=== PATIENT | female | born 1970 | race Caucasian/White ===

== ENCOUNTER → 2023-11-13 | Emergency (ER) | payer BC ==
[~2023-11-13] MED LIST: KETOROLAC 30 MG/ML INJ ONE; METHOCARBAMOL 1,000 MG/10 ML VIAL ONE; NA CHLORIDE 0.9% 1,000 ML ONE; NA CHLORIDE 0.9% 100 ML ONE; ONDANSETRON 4 MG/2 ML VIAL ONE; dexAMETHasone 10 MG/ML VIAL ONE
[2023-11-13 18:23] LABS: Specific Gravity > 1.030 (1.005-1.030)
[2023-11-13 18:26] LABS: Absolute Basophils 0.2 K/uL (0-0.5); Absolute Lymphocytes (CBC) 2.9 K/uL (0.7-4.9); Basophils % 1.6 % (0-1.3); Hematocrit 40.3 % (36.0-45.0); Lymphocytes % 30.2 % (15.3-44.8); MCV 85.4 fL (80-100); MPV 7.5 fL (7.6-11.3); Platelets 342 thou/uL (152-406); RBC Red Blood Cell Count 4.72 M/uL (3.86-4.86); Specific Gravity > 1.030 (1.005-1.030); Urine Bacteria None Seen /HPF (<20); Urine Bilirubin NEGATIVE (Negative); Urine Blood Negative (Negative); Urine Clarity Turbid (Clear); Urine Color Colorless (Yellow); Urine Glucose 4+ (Over) (Negative); Urine Mucus Slight /HPF (None Seen); Urine Protein NEGATIVE (Negative); Urine RBC <5 /HPF (None Seen); Urine Urobilinogen Normal (Normal); Urine pH 5.5 (5.0-7.0)
[2023-11-13 19:47] LABS: Albumin 3.3 g/dL (3.4-5.0); Anion Gap 10.6 mEq/L (5.0-15.0); Bilirubin Total 0.2 mg/dL (0.2-1.0); Potassium 3.6 mEq/L (3.5-5.1)
[2023-11-13 19:59] LABS: Albumin/Globulin Ratio 0.9 (1.1-1.8)
--- NOTE | 2023-11-13 20:51 | RAD REPORT ---
EXAM DESCRIPTION: CT - Abdomen Pelvis W Contrast - 11/13/2023 8:06 pm CLINICAL HISTORY: right lower abdomen pain COMPARISON: No comparisons TECHNIQUE: Thin cut axial CT imaging of the abdomen and pelvis was performed following intravenous a dministration of iodinated contrast. Multiplanar reformats were generated and reviewed. All CT scans are performed using dose optimization technique as appropriate and may include automated exposure control or mA/KV adjustment according to patient size. FINDINGS: No suspicious findings in the lung bases. The liver shows mild diffuse parenchymal hypoattenuation suggesting steatosis. Small regions of fatty sparing at the gallbladder bed the. Spleen and pancreas show no suspicious findings. Left adrenal 2. 4 x 2.2 cm enhancing nodule. Gallbladder is contracted limiting evaluation. . Symmetric renal function is seen with no hydronephrosis or suspicious renal mass. No dilated bowel loops or bowel wall thickening. Mild distal colonic diverticulosis. No free air, efraín e fluid or fluid collections. Nonspecific mild fat stranding at the mesenteric root. No hernia, mass or bulky lymphadenopathy. The urinary bladder is without significant finding. No suspicious bony findings. 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 IMPRESSION: Nonspecific mild fat stranding at the mesenteric root. The finding can be idiopathic, or seen with a variety of other etiologies including liver disease, inflammatory process ease in the ab domen, or mesenteric panniculitis. Incidentally noted left adrenal 2.3 cm nodule, not well characterized. This can be further evaluated on dedicated adrenal protocol CT or MRI, on an outpatient basis. Incidental findings including diffuse hepatic steatosis and mild distal colonic diverticulosis.
--- NOTE | 2023-11-13 22:37 | ER ---
Nurse's Notes [facility] Name: Laurie Lebron Age: 53 yrs Sex: Female : 1970 Arrival Date: 11/13/2023 Time: 17:13 Bed 15 Private MD: Diagnosis: Lower abdominal pain, unspecified;Dorsalgia, unspecified Presentation: 11/12 17:37 Chief complaint: Patient states: About 4 or 5 days ago i had a dull achy pain in my kd3 right side. I thought i pulled something so i took some ibuprofen and it was fine. But it kept coming back every afternoon. I woke up 2:30 yesterday morning and it was hurting really bad. I woke up at 4:30 this morning and it is even worse than yesterday. It starting in my stomach and wraps to my back. Coronavirus screen: Vaccine status: Patient reports receiving the 2nd dose of the covid vaccine. Ebola Screen: No symptoms or risks identified at this time. Initial Sepsis Screen: Does the patient meet any 2 criteria? No. Patient's initial sepsis screen is negative. Does the patient have a suspected source of infection? No. Patient's initial sepsis screen is negative. Risk Assessment: Do you want to hurt yourself or someone else? Patient reports no desire to harm self or others. Onset of symptoms was November 09, 2023. 17:37 Method Of Arrival: Ambulatory kd3 17:37 Acuity: JAMMIE 3 kd3 Triage Assessment: 17:40 General: Appears uncomfortable, Behavior is calm, cooperative. Pain: Complains of pain kd3 in right lower quadrant and left lower quadrant Pain radiates to right low back. GI: Abdomen is non-distended. Historical: - Allergies: 17:40 PENICILLINS; kd3 17:40 Morphine; kd3 - Immunization history:: Adult Immunizations up to date. - Social history:: Smoking status: Patient reports the use of cigarette tobacco products, smokes one-half pack cigarettes per day. Screenin:21 [facility] ED Fall Risk Assessment (Adult) History of falling in the last 3 months, cp4 including since admission No falls in past 3 months (0 pts) Confusion or Disorientation No (0 pts) Intoxicated or Sedated No (0 pts) Impaired Gait No (0 pts) Mobility Assist Device Used No (0 pt) Altered Elimination No (0 pt) Score/Fall Risk Level 0 - 2 = Low Risk Oriented to surroundings, Maintained a safe environment, Educated pt \T\ family on fall prevention, incl call for assistance when getting out of bed, Assessed \T\ reinforced patient's understanding of fall precautions, Hourly rounding (assess needs \T\ fall precautionary measures) done. Abuse screen: Denies threats or abuse. Nutritional screening: No deficits noted. Tuberculosis screening: No symptoms or risk factors identified. Assessment: 18:21 General: Appears in no apparent distress. Behavior is calm, cooperative, appropriate cp4 for age. Pain: Complains of pain in abdomen. GI: Bowel sounds present X 4 quads. Abd is soft and non tender X 4 quads. 22:07 General: Appears uncomfortable, Behavior is calm, cooperative. Pain: Complains of pain ha1 in back Pain radiates to pelvis Pain currently is 7 out of 10 on a pain scale. Quality of pain is described as throbbing, Aggravated by increased activity. Neuro: Level of Consciousness is awake, alert, obeys commands, Oriented to person, place, time, situation. Cardiovascular: Patient's skin is warm and dry. Respiratory: Airway is patent Respiratory effort is even, unlabored, Respiratory pattern is regular, symmetrical. 22:50 Reassessment: discharge pending medication administration to be completed. ha1 23:13 Reassessment: Patient and/or family updated on plan of care and expected duration. Pain ha1 level reassessed. Patient is alert, oriented x 3, equal unlabored respirations, skin warm/dry/pink. Patient states feeling better. Patient states symptoms have improved. Vital Signs: 17:37 BP 174 / 93; Pulse 97; Resp 16; Temp 98.3(O); Pulse Ox 98% on R/A; Weight 89.81 kg; kd3 Height 5 ft. 4 in. ; Pain 9/10; 18:30 BP 144 / 80; Pulse 90; Resp 18; Pulse Ox 98% ; cp4 19:30 BP 152 / 72; Pulse 95; Resp 18; Pulse Ox 98% ; cp4 20:30 BP 136 / 84; Pulse 91; Resp 18; Pulse Ox 98% ; cp4 22:15 BP 154 / 82; Pulse 82; Resp 16 S; Temp 98.1; Pulse Ox 97% on R/A; ha1 17:37 Body Mass Index 33.99 (89.81 kg, 162.56 cm) kd3 17:37 Pain Scale: Adult kd3 ED Course: 17:16 Patient arrived in ED. im 17:18 Vaughn Perez PA is PHCP. cp 17:18 Wilmer Henry DO is Attending Physician. cp 17:40 Triage completed. kd3 17:40 Arm band placed on left wrist. kd3 17:57 Renetta Andrade is Primary Nurse. cp4 18:13 CBC with Diff Sent. cp4 18:13 CMP Sent. cp4 18:13 Lipase Sent. cp4 18:13 Test, Urine Sent. cp4 18:13 Urinalysis w/ reflexes Sent. cp4 18:21 Bed in low position. Call light in reach. Side rails up X 1. cp4 18:22 Inserted saline lock: 20 gauge in right antecubital area, using aseptic technique. cp4 Blood collected. 20:08 CT Abd/Pelvis - IV Contrast Only In Process Unspecified. EDMS 22:05 Report received from Emilia Andrade RN. ha1 23:13 No provider procedures requiring assistance completed. IV discontinued, intact, ha1 bleeding controlled, No redness/swelling at site. Pressure dressing applied. 23:14 Provided Education on: medication administration . ha1 Administered Medications: 18:20 Drug: NS 0.9% IV 1000 ml IV at 1 bolus Per protocol; 1000 mL bolus Route: IV; Rate: 1 cp4 bolus; Site: right antecubital; 23:12 Follow up: Response: No adverse reaction; IV Status: Completed infusion; IV Intake: ha1 1000ml 18:21 Drug: TORadol - Ketorolac IVP 15 mg IVP once Route: IVP; Site: right antecubital; cp4 18:21 Drug: Ondansetron IVP 4 mg IVP once; over 2 minutes Route: IVP; Site: right antecubital;cp4 21:50 CANCELLED (Physician Discretion): fentanyl (pf)25 mcg IVP once cp 22:25 Drug: Decadron - Dexamethasone IVP 10 mg IVP once Route: IVP; Site: right antecubital; ha1 23:12 Follow up: Response: No adverse reaction ha1 22:27 Drug: Methocarbamol IVPB 1 grams IVPB once over 1 hrs; (mix in NS 100 mL) Route: IVPB; ha1 Infused Over: 1 hrs; Site: right antecubital; 23:12 Follow up: Response: No adverse reaction; IV Status: Completed infusion; IV Intake: ha1 100ml Medication: 18:21 VIS not applicable for this client. cp4 Intake: 23:12 IV: 100ml; Total: 100ml. ha1 23:12 IV: 1000ml; Total: 1100ml. ha1 Outcome: 22:37 Discharge ordered by MD. cp 23:13 Discharged to home ambulatory, ha1 23:13 Condition: stable 23:13 Discharge instructions given to patient, Instructed on discharge instructions, follow up and referral plans. medication usage, Demonstrated understanding of instructions, follow-up care, medications, Prescriptions given X 2, 23:14 Patient left the ED. ha1 Signatures: Dispatcher [employer] EDMS Vaughn Perez PA PA cp Doucette, Kyli, RN RN kd3 Della Perez RN RN ha1 Kristine Monson Christina cp4
--- NOTE | 2023-11-13 22:37 | EDPHYS ---
Physician Documentation [facility] Name: Laurie Lebron Age: 53 yrs Sex: Female : 1970 Arrival Date: 11/13/2023 Time: 17:13 Bed 15 Private MD: ED Physician Wilmer Henry HPI: 11/12 18:00 This 53 yrs old Female presents to ER via Ambulatory with complaints of Abdominal Pain, cp Low Back Pain. 18:00 The patient presents with abdominal pain right lower quadrant, right flank. Onset: The cp symptoms/episode began/occurred 4-5 days ago. The symptoms radiate to right back. Associated signs and symptoms: Pertinent negatives: anorexia, chest pain, constipation, diarrhea, dysuria, fever, vomiting, vaginal bleeding. 18:00 The symptoms are described as achy, constant, dull. Modifying factors: the symptoms are cp aggravated by movement, pressure. Severity of pain: in the emergency department the pain is unchanged despite home interventions. Historical: - Allergies: 17:40 PENICILLINS; kd3 17:40 Morphine; kd3 - Immunization history:: Adult Immunizations up to date. - Social history:: Smoking status: Patient reports the use of cigarette tobacco products, smokes one-half pack cigarettes per day. ROS: 18:05 Constitutional: Negative for body aches, chills, fever, poor PO intake, cp 18:05 Eyes: Negative for injury, pain, redness, and discharge, cp 18:05 ENT: Negative for drainage from ear(s), ear pain, sore throat, difficulty swallowing, difficulty handling secretions, 18:05 Cardiovascular: Negative for chest pain, 18:05 Respiratory: Negative for cough, shortness of breath, wheezing, 18:05 Abdomen/GI: Positive for abdominal pain, of the right lower quadrant and left lower quadrant, Negative for vomiting, diarrhea, constipation, anorexia, black/tarry stool, rectal bleeding, 18:05 Back: Positive for radiated pain, of the right low back, 18:05 : Negative for urinary symptoms, vaginal bleeding, 18:05 Neuro: Negative for altered mental status, headache, numbness, weakness, 18:05 All other systems are negative, Exam: 18:10 Constitutional: The patient appears in no acute distress, alert, awake, non-toxic, well cp developed, well nourished, 18:10 Head/Face: Normocephalic, atraumatic. cp 18:10 Eyes: Periorbital structures: appear normal, Conjunctiva: normal, no exudate, no injection, Sclera: no appreciated abnormality, Lids and lashes: appear normal, bilaterally, 18:10 ENT: External ear(s): are unremarkable, Nose: is normal, Mouth: Lips: moist, Oral mucosa: pink and intact, moist, Posterior pharynx: is normal, 18:10 Chest/axilla: Inspection: normal, 18:10 Cardiovascular: Rate: normal, Rhythm: regular, 18:10 Respiratory: the patient does not display signs of respiratory distress, Respirations: normal, no use of accessory muscles, no retractions, labored breathing, is not present, Breath sounds: are clear throughout, no decreased breath sounds, no stridor, no wheezing, 18:10 Abdomen/GI: Inspection: abdomen appears normal, Bowel sounds: active, all quadrants, Palpation: soft, in all quadrants, moderate abdominal tenderness, in the right lower quadrant and right lower flank, rebound tenderness, is not appreciated, involuntary guarding, is not appreciated, 18:10 Back: CVA tenderness, is absent, 18:10 Skin: cellulitis, is not appreciated, no rash present. Vital Signs: 17:37 BP 174 / 93; Pulse 97; Resp 16; Temp 98.3(O); Pulse Ox 98% on R/A; Weight 89.81 kg; kd3 Height 5 ft. 4 in. ; Pain 9/10; 18:30 BP 144 / 80; Pulse 90; Resp 18; Pulse Ox 98% ; cp4 19:30 BP 152 / 72; Pulse 95; Resp 18; Pulse Ox 98% ; cp4 20:30 BP 136 / 84; Pulse 91; Resp 18; Pulse Ox 98% ; cp4 22:15 BP 154 / 82; Pulse 82; Resp 16 S; Temp 98.1; Pulse Ox 97% on R/A; ha1 17:37 Body Mass Index 33.99 (89.81 kg, 162.56 cm) kd3 17:37 Pain Scale: Adult kd3 MDM: 17:36 Patient medically screened. cp 22:36 Data reviewed: vital signs, nurses notes, lab test result(s), radiologic studies, CT cp scan, and as a result, I will discharge patient. 22:36 Differential diagnosis: appendicitis, non-specific abd pain, Pyelonephritis, cp Ureterolithiasis, urinary tract infection. I considered the following discharge prescriptions or medication management in the emergency department Medications were administered in the Emergency Department. See MAR. Counseling: I had a detailed discussion with the patient and/or guardian regarding the historical points, exam findings, and any diagnostic results supporting the discharge/admit diagnosis, lab results, radiology results, to return to the emergency department if symptoms worsen or persist or if there are any questions or concerns that arise at home. Response to treatment: the patient's symptoms have markedly improved after treatment, and as a result, I will discharge patient. Special discussion: Based on the patient's Hx, exam, and Dx evaluation, there is no indication for emergent surgery or inpatient Tx. It is understood by the patient/guardian that if the Sx's persist or worsen they need to return immediately for re-evaluation. 11/12 17:52 Order name: CBC with Diff; Complete Time: 18:33 cp 11/12 17:52 Order name: CMP; Complete Time: 21:05 cp 11/12 17:52 Order name: Lipase; Complete Time: 21:05 cp 11/12 17:52 Order name: Test, Urine; Complete Time: 18:33 cp 11/12 17:52 Order name: Urinalysis w/ reflexes; Complete Time: 18:33 cp 11/12 21:07 Interpretation: Normal except: [facility] Turbid; Urine SG > 1.030; UGLUC 4+ (Over). cp 11/12 18:34 Order name: CT Abd/Pelvis - IV Contrast Only; Complete Time: 21:05 cp 11/12 21:06 Interpretation: Report reviewed. 11/12 17:52 Order name: IV Saline Lock; Complete Time: 18:08 cp 11/12 17:52 Order name: Labs collected and sent; Complete Time: 18:08 cp Administered Medications: 18:20 Drug: NS 0.9% IV 1000 ml IV at 1 bolus Per protocol; 1000 mL bolus Route: IV; Rate: 1 cp4 bolus; Site: right antecubital; 23:12 Follow up: Response: No adverse reaction; IV Status: Completed infusion; IV Intake: ha1 1000ml 18:21 Drug: TORadol - Ketorolac IVP 15 mg IVP once Route: IVP; Site: right antecubital; cp4 18:21 Drug: Ondansetron IVP 4 mg IVP once; over 2 minutes Route: IVP; Site: right antecubital;cp4 21:50 CANCELLED (Physician Discretion): fentanyl (pf)25 mcg IVP once cp 22:25 Drug: Decadron - Dexamethasone IVP 10 mg IVP once Route: IVP; Site: right antecubital; ha1 23:12 Follow up: Response: No adverse reaction ha1 22:27 Drug: Methocarbamol IVPB 1 grams IVPB once over 1 hrs; (mix in NS 100 mL) Route: IVPB; ha1 Infused Over: 1 hrs; Site: right antecubital; 23:12 Follow up: Response: No adverse reaction; IV Status: Completed infusion; IV Intake: ha1 100ml Disposition Summary: 11/13/23 22:37 Discharge Ordered Notes: Location: Home cp Problem: new cp Symptoms: have improved cp Condition: Stable cp Diagnosis - Lower abdominal pain, unspecified cp - Dorsalgia, unspecified cp Followup: cp - With: Private Physician - When: 2 - 3 days - Reason: Recheck today's complaints Discharge Instructions: - Discharge Summary Sheet cp - Abdominal Pain, Adult cp - Acute Back Pain, Adult cp Forms: - Medication Reconciliation Form cp - Thank You Letter cp - Antibiotic Education cp - Prescription Opioid Use cp - Patient Portal Instructions cp - Leadership Thank You Letter cp Prescriptions: - Cyclobenzaprine 10 mg Oral Tablet - take 1 tablet ORAL route every 8 hours As needed; 30 tablet; Refills: 0, cp Product Selection Permitted - Diclofenac Sodium 75 mg Oral Tablet Sustained Release - take 1 tablet ORAL route 2 times per day; 30 tablet; Refills: 0, Product cp Selection Permitted Addendum: 11/15/2023 21:11 I was immediately available on-site in the Emergency Department for consultation in the m s3 care of the patient. Signatures: Dispatcher [employer] EDVaughn Landa PA PA cp Sims, Marcus, DO DO ms3 Tavia Morel RN RN kd3 Della Perez RN RN ha1 Renetta Andrade cp4 Corrections: (The following items were deleted from the chart) 11/12 21:50 21:50 fentaNYL (PF) IVP 25 mcg IVP once ordered. cp cp
[2023-11-14 00:44] VITALS: BP 154/82; TEMP 98.1; O2SAT 97
== END ==
LOC: ER 17:13
DX: R10.31 Right lower quadrant pain (principal); M54.9 Dorsalgia, unspecified; F17.210 Nicotine dependence, cigarettes, uncomplicated; Z88.0 Allergy status to penicillin; Z88.5 Allergy status to narcotic agent
CPT/HCPCS: 96365; 96361; 85025; 81001; 36415; 81025; 83690; 80053; 74177; 96375; 99284; J1100; J2405; J2800; J7030